=== PATIENT | female | born 1990 | race Caucasian/White ===

== ENCOUNTER 2018-01-11 16:03 | Emergency (ER) | payer BC, OTHER ==
--- NOTE | 2018-01-11 16:32 | EDM.PDOC ---
ED HPI GENERAL MEDICAL PROBLEM - General Chief Complaint: General Stated Complaint: FELL OFF A HORSE Time Seen by Provider: 01/11/18 16:15 Source of Information: Reports: Patient History Limitations: Reports: No Limitations - History of Present Illness INITIAL COMMENTS - FREE TEXT/NARRATIVE: HISTORY AND PHYSICAL: History of present illness: [Patient comes to the emergency room complaining of left shoulder and bilateral rib pain. She was riding her horse today while it was walking. While the horse was walking her saddle became loose and she slid to the ground. She landed on her left shoulder. She hit her head on grass but denies loss of consciousness. She has no headaches. This occurred just prior to arrival. Admits a history of chronic left shoulder pain for which she receives steroid injections. The pain is worse since she slid off her horse today. Denies headache blurred vision and double vision. No neck pain. No back or hip pain. She's been walking without difficulty. No dizziness. Denies numbness or tingling to her lower extremities.] Review of systems: As per history of present illness and below otherwise all systems reviewed and negative. Past medical history: As per history of present illness and as reviewed below otherwise noncontributory. Surgical history: As per history of present illness and as reviewed below otherwise noncontributory. Social history: No reported history of drug or alcohol abuse. Family history: As per history of present illness and as reviewed below otherwise noncontributory. Physical exam: HEENT: Atraumatic, normocephalic. PERRLA. EOMI. Oral mucous membranes are pink and moist. No pain with palpation of C-spine and face. Lungs: Clear to auscultation, breath sounds equal bilaterally. Is tender w/ palpation over R and L lateral ribs. Otherwise, chest is nontender w palpation. Heart: S1S2, regular, negative for clicks, rubs, or JVD. Abdomen: Soft, nondistended, nontender. Negative for masses guarding or rebound. Negative for costovertebral tenderness. Pelvis: Stable nontender. Genitourinary: Deferred. Rectal: Deferred. Extremities: Normal appearance to left shoulder. She is tender with palpation over the AC joint. Has full ROM w/ movement of L shoulder though she does have some discomfort. No wounds or lacerations. Neurovascular unremarkable. Neuro: Awake, alert, oriented. Motor and sensory unremarkable throughout. Exam nonfocal. Diagnostics: [L rib xray w/o chest, R rib xrays w/ chest, L shoulder xray, urine Hcg] Impression: [Left shoulder pain Bilateral rib pain] Plan: [Discussed with patient that her x-rays show no abnormalities. Recommend she treat with [id number] analgesics and anti-inflammatories and ice packs as needed. Gentle stretching as tolerated. Follow-up with PCP. Strict return precautions are reviewed. Patient is in agreement with today's plan.] Definitive disposition and diagnosis as appropriate pending reevaluation and review of above. Left Shoulder Pain Score (Numeric/FACES): 9 Left Generalized Pain Score (Numeric/FACES): 9 - Related Data Allergies Allergy/AdvReac Type Severity Reaction Status Date / Time erythromycin base Allergy Rash Verified 09/26/14 21:51 [Erythromycin Base] Penicillins Allergy Hives Verified 09/26/14 21:51 Sulfa (Sulfonamide Allergy Anaphylactic Verified 09/26/14 21:51 Antibiotics) Shock Home Meds: Home Meds Fluticasone Propionate [Flonase] 2 sprays INH BID 06/13/14 [History] Moxifloxacin [Vigamox 0.5% Ophth Soln] 1 dose TOP DAILY 06/13/14 [History] diphenhydrAMINE HCl [Benadryl] 25 mg PO BID 06/13/14 [History] Azelastine HCl 2 sprays INH BID 01/11/18 [History] Budesonide [Pulmicort] 1 dose INH BID 01/11/18 [History] Montelukast [Singulair] 1 tab PO DAILY 01/11/18 [History] SUMAtriptan [Imitrex] 50 mg PO BID PRN 01/11/18 [History] Past Medical History Other Immunologic History: Allergies - Past Surgical History HEENT Surgical History: Reports: Adenoidectomy, Myringotomy w Tube(s), Naso- Sinus Surgery, Oral Surgery, Tonsillectomy Social & Family History - Family History Family Medical History: Noncontributory - Tobacco Use Smoking Status *Q: Never Smoker - Caffeine Use Caffeine Use: Reports: None - Recreational Drug Use Recreational Drug Use: No ED ROS GENERAL - Review of Systems Review Of Systems: ROS reveals no pertinent complaints other than HPI. ED EXAM, GENERAL - Physical Exam Exam: See Below Course - Vital Signs Last Recorded V/S: Last Vital Signs Temp 97.8 F 01/11/18 16:06 Pulse 103 H 01/11/18 16:06 Resp 18 01/11/18 16:06 BP 129/68 01/11/18 16:06 Pulse Ox 97 01/11/18 16:06 - Orders/Labs/Meds Orders: Active Orders 24 hr Category Date Time Status Ribs 2V w Chest Rt [CR] Stat Exams 01/11/18 16:24 Taken Ribs 2V wo Chest Lt [CR] Stat Exams 01/11/18 16:24 Taken Shoulder Comp Lt [CR] Stat Exams 01/11/18 16:24 Taken HCG QUALITATIVE,URINE [URCHEM] Stat Lab 01/11/18 16:30 Ordered Labs: Laboratory Tests 01/11/18 Range/Units 16:30 Urine HCG, Qual NEGATIVE (NEGATIVE) Departure - Departure Time of Disposition: 17:45 Disposition: Home, Self-Care 01 Condition: Good Clinical Impression: Left shoulder pain, Rib pain - Discharge Information Instructions: Shoulder Pain, Rib Contusion Referrals: PCP,None [Primary Care Provider] - Forms: ED Department Discharge Additional Instructions: The following information is given to patients seen in the emergency department who are being discharged to home. This information is to outline your options for follow-up care. We provide all patients seen in our emergency department with a follow-up referral. The need for follow-up, as well as the timing and circumstances, are variable depending upon the specifics of your emergency department visit. If you don't have a primary care physician on staff, we will provide you with a referral. We always advise you to contact your personal physician following an emergency department visit to inform them of the circumstance of the visit and for follow-up with them and/or the need for any referrals to a consulting specialist. The emergency department will also refer you to a specialist when appropriate. This referral assures that you have the opportunity for follow-up care with a specialist. All of these measure are taken in an effort to provide you with optimal care, which includes your follow-up. Under all circumstances we always encourage you to contact your private physician who remains a resource for coordinating your care. When calling for follow-up care, please make the office aware that this follow-up is from your recent emergency room visit. If for any reason you are refused follow-up, please contact the [facility] emergency department at and asked to speak to the emergency department charge nurse. [facility] [address] [place] [id number] Follow-up with your local primary care provider or at the clinic listed above in 48-72 hours. Tylenol alternating with ibuprofen as needed for discomfort. Ice packs as needed. Return to ER as needed as discussed. - My Orders Last 24 Hours: My Active Orders 01/11/18 16:24 Ribs 2V w Chest Rt [CR] Stat Ribs 2V wo Chest Lt [CR] Stat Shoulder Comp Lt [CR] Stat 01/11/18 16:30 HCG QUALITATIVE,URINE [URCHEM] Stat - Assessment/Plan Last 24 Hours: My Active Orders 01/11/18 16:24 Ribs 2V w Chest Rt [CR] Stat Ribs 2V wo Chest Lt [CR] Stat Shoulder Comp Lt [CR] Stat 01/11/18 16:30 HCG QUALITATIVE,URINE [URCHEM] Stat
[2018-01-11 18:40] VITALS: BP 102/52
--- NOTE | 2018-01-12 15:41 | CR ---
EXAM DATE: 01/11/18 PATIENT'S AGE: 27 Patient: DILLON KAMARA Facility: [place], [place] Site . Site : 1990 Study: XRay Chest Left ribs [id number]/10/2018 5:28:52 PM Ordering Physician: Doctor Macdonald Final Report: INDICATION: Pain after fall TECHNIQUE: Two left ribs. FINDINGS: Visualized lungs are clear. There is no evidence of pulmonary contusion, pneumothorax or pleural effusion. The heart and pulmonary vessels are of normal size. Oblique detail views of the ribs demonstrate no evidence of fracture or intrinsic bone lesion. There is no evidence of pleural hematoma. IMPRESSION: Negative left ribs. Dictated by Roberto Enamorado MD @ Jan 11 2018 5:42PM (Electronic Signature) Report Signed by Proxy. NAJMA
--- NOTE | 2018-01-12 15:42 | CR ---
EXAM DATE: 01/11/18 PATIENT'S AGE: 27 Patient: DILLON KAMARA Facility: [place], [place] Site . Site : 1992 Study: XRay Chest Right ribs [id number]/10/2018 5:29:27 PM Ordering Physician: Doctor Macdonald Final Report: INDICATION: Pain after fall TECHNIQUE: PA chest and 2 right ribs. FINDINGS: The lungs are clear. There is no evidence of pulmonary contusion, pneumothorax or pleural effusion. The heart and pulmonary vessels are of normal size. Oblique detail views of the ribs demonstrate no evidence of fracture or intrinsic bone lesion. There is no evidence of pleural hematoma. IMPRESSION: Negative chest and right ribs. Dictated by Roberto Enamorado MD @ Jan 11 2018 5:42PM (Electronic Signature) Report Signed by Proxy. NAJMA
--- NOTE | 2018-01-12 15:43 | CR ---
EXAM DATE: 01/11/18 PATIENT'S AGE: 27 Patient: DILLON KAMARA Facility: [place], [place] Site . Site : 1992 Study: XRay Shoulder Left [id number]/10/2018 5:29:50 PM Ordering Physician: Doctor Macdonald Final Report: INDICATION: Pain after fall. TECHNIQUE: Three views left glenohumeral joint. IMPRESSION: Anatomic is alignment. Maintained acromial humeral distance. Acromioclavicular joint is normal. No fracture in the field of view. Dictated by Roberto Enamorado MD @ Jan 11 2018 5:43PM (Electronic Signature) Report Signed by Proxy. NAJMA
== END 2018-01-11 18:15 | disposition home or self-care (01) ==
LOC: MW.ED 16:03
DX: M25.512 Pain in left shoulder (principal); R07.81 Pleurodynia; Z79.899 Other long term (current) drug therapy; Z88.2 Allergy status to sulfonamides; Z88.0 Allergy status to penicillin; Z88.1 Allergy status to other antibiotic agents
CPT/HCPCS: 71100-26-LT; 71100-LT; 71101-26-RT; 71101-RT; 73030-26-LT; 73030-LT; 81025; 99284